=== PATIENT | male | born 1945 | race Caucasian/White ===

== ENCOUNTER 2018-11-23 06:37 | Emergency (ER) | payer BC, MEDICARE, OTHER ==
[2018-11-23 06:59] VITALS: BP 158/95
[2018-11-23] MEDS ORDERED: Sodium Chloride 0.9% 10 ML Syringe FLUSH PRN (07:19)
[2018-11-23] MEDS ORDERED: Ondansetron 4 MG/2 ML SDV IVPUSH ONE (07:22)
[2018-11-23] MEDS ORDERED: HYDROmorphone 0.5 MG/0.5 ML Syringe IVPUSH ONE (07:22)
--- NOTE | 2018-11-23 07:25 | EDM.PDOC ---
ED HPI GENERAL MEDICAL PROBLEM - General Chief Complaint: Abdominal Pain Stated Complaint: ABDOMINAL PAIN Time Seen by Provider: 11/23/18 07:11 Source of Information: Reports: Patient, Family, RN Notes Reviewed History Limitations: Reports: No Limitations - History of Present Illness INITIAL COMMENTS - FREE TEXT/NARRATIVE: 72-year-old gentleman presents emergency department day complaint of epigastric pain, he has a known history of right renal carcinoma status post nephrectomy recently visited his urologist yesterday for yearly evaluation which included blood work and CT scan chest abdomen and pelvis no acute process was noted in blood work or CT scan. He states the pain started last night quite severe rates it 7 out of 10 he describes it as sharp constant he is not found anything to get any relief epigastric pain Pain Score (Numeric/FACES): 7 - Related Data Allergies Allergy/AdvReac Type Severity Reaction Status Date / Time No Known Allergies Allergy Verified 11/23/18 07:00 Home Meds: Home Meds amLODIPine Besylate [Amlodipine Besylate] 10 mg PO DAILY 11/19/15 [History] hydroCHLOROthiazide [Hydrochlorothiazide] 50 mg PO DAILY 11/19/15 [History] Latanoprost 1 drop TOP DAILY 11/23/18 [History] Tamsulosin HCl 1 tab PO DAILY 11/23/18 [History] Past Medical History HEENT History: Reports: Impaired Vision Cardiovascular History: Reports: Hypertension Genitourinary History: Reports: BPH Musculoskeletal History: Reports: Arthritis, Fracture Other Musculoskeletal History: foot broken,thumb smashed,nose broken Neurological History: Reports: Concussion, Migraines Oncologic (Cancer) History: Reports: Basal Cell Carcinoma, Renal (Status post right nephrectomy), Squamous Cell Carcinoma Other Oncologic History: back, head, face - Infectious Disease History Infectious Disease History: Reports: Chicken Pox - Past Surgical History GI Surgical History: Reports: Colonoscopy Social & Family History - Family History Family Medical History: Unobtainable - Tobacco Use Smoking Status *Q: Never Smoker - Living Situation & Occupation Living situation: Reports: , with Spouse Occupation: Retired ED ROS GENERAL - Review of Systems Review Of Systems: See Below Constitutional: Reports: Chills HEENT: Reports: No Symptoms Respiratory: Reports: No Symptoms Cardiovascular: Reports: No Symptoms GI/Abdominal: Reports: Abdominal Pain (Epigastric area), Flatus, Nausea, Vomiting. Denies: Constipation, Diarrhea : Reports: No Symptoms Musculoskeletal: Reports: No Symptoms Skin: Reports: No Symptoms Neurological: Reports: No Symptoms ED EXAM, GI/ABD - Physical Exam Exam: See Below Exam Limited By: No Limitations General Appearance: Alert, Mild Distress Throat/Mouth: No Airway Compromise Neck: Normal Inspection, Supple, Non-Tender, Full Range of Motion Respiratory/Chest: No Respiratory Distress, Lungs Clear, Normal Breath Sounds, No Accessory Muscle Use, Chest Non-Tender Cardiovascular: Regular Rate, Rhythm, No Murmur GI/Abdominal Exam: Normal Bowel Sounds, Soft, No Distention, Tender (Epigastric region) Course - Vital Signs Last Recorded V/S: Last Vital Signs Temp 96.4 F 11/23/18 07:08 Pulse 87 11/23/18 07:08 Resp 16 11/23/18 07:08 BP 158/95 H 11/23/18 07:08 Pulse Ox 96 11/23/18 07:08 - Orders/Labs/Meds Orders: Active Orders 24 hr Category Date Time Status Cardiac Monitoring [RC] .As Directed Care 11/23/18 07:19 Active EKG Documentation Completion [RC] ASDIRECTED Care 11/23/18 07:20 Active Peripheral IV Care [RC] . DIRECTED Care 11/23/18 07:20 Active Abdomen Ltd [US] Stat Exams 11/23/18 08:32 Taken Lactated Ringers [Ringers, Lactated] 1,000 ml Med 11/23/18 07:30 Active IV ASDIRECTED Sodium Chloride 0.9% [Saline Flush] Med 11/23/18 07:19 Active 10 ml FLUSH ASDIRECTED PRN Peripheral IV Insertion Adult [OM.PC] Stat Oth 11/23/18 07:19 Ordered EKG 12 Lead [EK] Stat Ther 11/23/18 07:20 Ordered Medication Orders Lactated Ringer's (Ringers, Lactated) 1,000 mls @ 999 mls/hr IV ASDIRECTED SUNIL Last Admin: 11/23/18 07:41 Dose: 999 mls/hr Sodium Chloride (Saline Flush) 10 ml FLUSH ASDIRECTED PRN PRN Reason: Keep Vein Open Last Admin: 11/23/18 07:36 Dose: 10 ml Labs: Laboratory Tests 11/23/18 11/23/18 11/23/18 Range/Units 07:26 07:26 07:26 WBC 5.7 (4.5-11.0) K/uL RBC 5.59 (4.30-5.90) M/uL Hgb 16.4 H (12.0-15.0) g/dL Hct 47.5 (40.0-54.0) % MCV 85 (80-98) fL MCH 29 (27-31) pg MCHC 35 (32-36) % Plt Count 193 (150-400) K/uL Neut % (Auto) 89 H (36-66) % Lymph % (Auto) 8 L (24-44) % [place] % (Auto) 3 (2-6) % Eos % (Auto) 0 L (2-4) % Baso % (Auto) 0 (0-1) % Sodium 138 L (140-148) mmol/L Potassium 3.8 (3.6-5.2) mmol/L Chloride 100 (100-108) mmol/L Carbon Dioxide 28 (21-32) mmol/L Anion Gap 13.8 (5.0-14.0) mmol/L BUN 20 H (7-18) mg/dL Creatinine 1.4 H (0.8-1.3) mg/dL Est Cr Clr Drug Dosing 46.14 mL/min Estimated GFR (MDRD) 50 L (>60) Glucose 124 H (74-106) mg/dL Lactic Acid 2.1 H (0.4-2.0) mmol/L Calcium 9.4 (8.5-10.1) mg/dL Total Bilirubin 0.5 (0.2-1.0) mg/dL AST 24 (15-37) U/L ALT 32 (12-78) U/L Alkaline Phosphatase 67 (46-116) U/L Troponin I < 0.017 (0.000-0.056) ng/mL Total Protein 7.2 (6.4-8.2) g/dL Albumin 3.6 (3.4-5.0) g/dL Globulin 3.6 H (2.3-3.5) g/dL Albumin/Globulin Ratio 1.0 L (1.2-2.2) Lipase (73-393) U/L 11/23/18 Range/Units 07:26 WBC (4.5-11.0) K/uL RBC (4.30-5.90) M/uL Hgb (12.0-15.0) g/dL Hct (40.0-54.0) % MCV (80-98) fL MCH (27-31) pg MCHC (32-36) % Plt Count (150-400) K/uL Neut % (Auto) (36-66) % Lymph % (Auto) (24-44) % [place] % (Auto) (2-6) % Eos % (Auto) (2-4) % Baso % (Auto) (0-1) % Sodium (140-148) mmol/L Potassium (3.6-5.2) mmol/L Chloride (100-108) mmol/L Carbon Dioxide (21-32) mmol/L Anion Gap (5.0-14.0) mmol/L BUN (7-18) mg/dL Creatinine (0.8-1.3) mg/dL Est Cr Clr Drug Dosing mL/min Estimated GFR (MDRD) (>60) Glucose (74-106) mg/dL Lactic Acid (0.4-2.0) mmol/L Calcium (8.5-10.1) mg/dL Total Bilirubin (0.2-1.0) mg/dL AST (15-37) U/L ALT (12-78) U/L Alkaline Phosphatase (46-116) U/L Troponin I (0.000-0.056) ng/mL Total Protein (6.4-8.2) g/dL Albumin (3.4-5.0) g/dL Globulin (2.3-3.5) g/dL Albumin/Globulin Ratio (1.2-2.2) Lipase 224 (73-393) U/L Meds: Medications Generic Name Dose Route Start Last Admin Trade Name Freq PRN Reason Stop Dose Admin Lactated Ringer's 1,000 mls @ 999 mls/hr 11/23/18 07:30 11/23/18 07:41 Ringers, Lactated IV 999 mls/hr ASDIRECTED SUNIL Administration Sodium Chloride 10 ml 11/23/18 07:19 11/23/18 07:36 Saline Flush FLUSH 10 ml ASDIRECTED PRN Administration Keep Vein Open Discontinued Medications Generic Name Dose Route Start Last Admin Trade Name Freq PRN Reason Stop Dose Admin Al Hydroxide/Mg Hydroxide 15 0 ml 11/23/18 08:12 11/23/18 08:24 ml/ Lidocaine HCl 15 ml PO 11/23/18 08:13 30 ml ONETIME ONE Administration Hydromorphone HCl 0.5 mg 11/23/18 07:22 11/23/18 07:36 Dilaudid IVPUSH 11/23/18 07:23 0.5 mg ONETIME ONE Administration Ondansetron HCl 4 mg 11/23/18 07:22 11/23/18 07:35 Zofran IVPUSH 11/23/18 07:23 4 mg ONETIME ONE Administration Departure - Departure Time of Disposition: 09:33 Disposition: Home, Self-Care 01 Condition: Fair Clinical Impression: Epigastric abdominal pain [place]stone Qualifiers: Cholecystitis presence: without cholecystitis Biliary obstruction: without biliary obstruction Qualified Code(s): K80.20 - Calculus of gallbladder without cholecystitis without obstruction - Discharge Information Referrals: Alberto Padgett MD [Primary Care Provider] - Forms: ED Department Discharge Additional Instructions: Please follow-up with your HIDA scan, prescription written for hydrocodone 5/ 325 one tab by mouth [address] Padgett will be in contact with you with the results - My Orders Last 24 Hours: My Active Orders 11/23/18 07:19 Cardiac Monitoring [RC] .As Directed Sodium Chloride 0.9% [Saline Flush] 10 ml FLUSH ASDIRECTED PRN Peripheral IV Insertion Adult [OM.PC] Stat 11/23/18 07:20 EKG Documentation Completion [RC] ASDIRECTED Peripheral IV Care [RC] . DIRECTED EKG 12 Lead [EK] Stat 11/23/18 07:30 Lactated Ringers [Ringers, Lactated] 1,000 ml IV ASDIRECTED 11/23/18 08:32 Abdomen Ltd [US] Stat - Assessment/Plan Last 24 Hours: My Active Orders 11/23/18 07:19 Cardiac Monitoring [RC] .As Directed Sodium Chloride 0.9% [Saline Flush] 10 ml FLUSH ASDIRECTED PRN Peripheral IV Insertion Adult [OM.PC] Stat 11/23/18 07:20 EKG Documentation Completion [RC] ASDIRECTED Peripheral IV Care [RC] . DIRECTED EKG 12 Lead [EK] Stat 11/23/18 07:30 Lactated Ringers [Ringers, Lactated] 1,000 ml IV ASDIRECTED 11/23/18 08:32 Abdomen Ltd [US] Stat Plan: Assessment Acuity = acute Site and laterality = epigastric pain Etiology = suspicious for gallbladder disease Manifestations = nausea and vomiting Location of injury = Home Lab values = CBC unremarkable, creatinine elevated 1.4 consistent chronic renal failure stage GIII a, troponin was negative, lipase negative, lactic acid within normal limits ultrasound shows moderate amount of gallstones with no gallbladder thickening by report gallbladder is three quarters [address] way full with stones Plan discussed case with his primary care provider Dr. Padgett 09:30 agreed to pursue a gallbladder workup therefore I ordered a HIDA scan prescription written for hydrocodone 5/325 one tab by mouth 3 times a day when necessary total #10, order written for HIDA scan as well This note was dictated using [employer] voice recognition software please call with any questions on syntax or grammar.
[2018-11-23] MEDS ORDERED: Lactated Ringers 1,000 ML IV SCH (07:30)
[2018-11-23] MEDS ORDERED: Alum Hydrox/Mag Hydrox/Simeth 15 ML, Lidocaine 2% 15 ML PO ONE ×2 (08:12)
--- NOTE | 2018-11-23 08:33 | CRLCR ---
INDICATION: Chest pain COMPARISON: none TECHNIQUE: Portable AP erect chest performed at 7:30 a.m. FINDINGS: The lungs are clear. There is no evidence of pneumothorax. The heart, mediastinum and pulmonary vessels are of normal size. There is no evidence of pleural fluid. IMPRESSION: Negative chest. Dictated by Kiran Walker MD @ Nov 23 2018 8:31AM Signed by Dr. Kiran Walker @ Nov 23 2018 8:32AM
[2018-11-23] MEDS ORDERED: HYDROmorphone 1 MG/ML Syringe IM ONE (09:52)
--- NOTE | 2018-11-23 10:01 | CRLUS ---
INDICATION: Epigastric pain. Prior right nephrectomy for carcinoma in 2016. COMPARISON: none TECHNIQUE: 2D price scale imaging and color Doppler analysis was performed of the right upper quadrant. FINDINGS: The patient`s liver is of normal size and has uniform echogenicity. There is no evidence of ascites. There is a normal appearance of the hepatic IVC and proximal abdominal aorta. The pancreatic body appears normal. The pancreatic head and tail were obscured. The gallbladder is of normal size and there are several small mobile stones within the lumen. There is no evidence of edema within the gallbladder wall and the nurse midwife/clinical instructor commented that the patient was not focally tender over the gallbladder during the exam. The gallbladder wall measures 3 mm in thickness. The common bile duct is of normal size and measures 5 mm in diameter at the level of the marguerite hepatis. No suspicious soft tissue masses noted within the right nephrectomy bed. IMPRESSION: Cholelithiasis but without evidence of acute cholecystitis or biliary duct obstruction. Dictated by Kiran Walker MD @ Nov 23 2018 9:53AM Signed by Dr. Kiran Walker @ Nov 23 2018 10:00AM
== END 2018-11-23 10:14 | disposition home or self-care (01) ==
LOC: JP.ED 06:37
DX: K80.20 Calculus of gallbladder without cholecystitis without obstruction (principal); I10 Essential (primary) hypertension; Z79.899 Other long term (current) drug therapy
CPT/HCPCS: 36415; 71045; 76705; 80053; 83605; 83690; 84484; 85025; 93005; 96374; 96375; 99285-25; A9270-GY; J1170; J2405; J7120

== ENCOUNTER 2018-12-24 07:05 | Day surgery (SDC) | payer MEDICARE ==
[~2018-12-24 07:05] MED LIST: Bupivacaine 0.5% 50 ML MDV ONE; Lidocaine 1% with EPINEPHrine 1:100,000 50 ML MDV ONE
[2018-12-24] MEDS ORDERED: Dexamethasone 4 MG/ML SDV ONE (07:18)
[2018-12-24] MEDS ORDERED: fentaNYL 250 MCG/5 ML SDV ONE (07:18)
[2018-12-24] MEDS ORDERED: Rocuronium 50 MG/5 ML Vial ONE (07:18)
[2018-12-24] MEDS ORDERED: Propofol 200 MG/20 ML SDV ONE (07:18)
[2018-12-24] MEDS ORDERED: Neostigmine Methylsulfate 1 MG/ML 5 ML Syringe ONE (07:18)
[2018-12-24] MEDS ORDERED: Glycopyrrolate 0.2 MG/ML 5 ML MDV ONE (07:18)
[2018-12-24] MEDS ORDERED: Ondansetron 4 MG/2 ML SDV ONE (07:18)
[2018-12-24] MEDS ORDERED: Scopolamine 1.5 MG Transdermal Patch TOP SCH (07:42)
[2018-12-24] MEDS ORDERED: Ropivacaine 52 ML, Dexamethasone 8 MG, EPINEPHrine 0.4 MG, Sodium Chloride 0.9% 25.6 ML NERVRT SCH ×4 (08:00)
[2018-12-24] MEDS ORDERED: Sodium Chloride 0.9% 1,000 ML IV SCH (08:00)
[2018-12-24] MEDS: metroNIDAZOLE/Normal Saline 500 MG in Premix Bag 1 BAG IV ONE ×2 (08:05→11:29)
[2018-12-24] MEDS ORDERED: hydrOXYzine HCl 100 MG/2 ML SDV IM PRN (08:26)
[2018-12-24] MEDS ORDERED: Docusate Sodium 100 MG Cap PO PRN (08:26)
[2018-12-24] MEDS ORDERED: fentaNYL 100 MCG/2 ML SDV IVPUSH PRN (08:26)
[2018-12-24] MEDS: ceFAZolin 2 GM in Premix Bag 1 BAG IV ONE ×2 (08:30→11:28)
[2018-12-24] MEDS ORDERED: Phenylephrine 1% 10 MG/ML SDV ONE (08:40)
[2018-12-24] MEDS ORDERED: Lactated Ringers 1,000 ML ONE (09:04)
[2018-12-24] MEDS ORDERED: Lidocaine 1% with EPINEPHrine 1:100,000 50 ML MDV INJECT ONE (09:30)
[2018-12-24] MEDS ORDERED: fentaNYL 100 MCG/2 ML SDV ONE (09:30)
--- NOTE | 2018-12-24 10:05 | OR ---
DATE OF PROCEDURE: 12/24/2018 PROCEDURE: Transversus abdominis plane block, bilaterally. COMPLICATIONS: None. MANAGEMENT SCIENTIST: None. RISKS: Risks, benefits, alternatives, and limitations including, but not limited to infection, bleeding, and injury to abdominal structures were all explained to the patient, who wished to proceed. PROCEDURE IN DETAIL: The patient was placed in supine position. The right transversus plane was addressed first. Using 11 megahertz ultrasound probe, the needle was advanced between the 2nd and 3rd planes and 80% of the solution was injected. Same procedure was performed on the opposite side in the same manner, same fashion, same technique, in the same sequence, except different needle and syringe. The patient tolerated the procedure well. Cristo Martínez MD /[id number]
[2018-12-24] MEDS: Acetaminophen/HYDROcodone 325-10 MG Tab PO PRN ×2 (10:38→18:45)
--- NOTE | 2018-12-24 11:57 | OR ---
DATE OF PROCEDURE: 12/24/2018 PROCEDURES: 1. Laparoscopic cholecystectomy. 2. Liver biopsy. COMPLICATIONS: None. PRINTED CIRCUIT BOARD PCB DESIGNER: None. FINDINGS: 1. A very fragile liver. 2. Adhesions in abdomen due to previous nephrectomy. 3. Cholecystitis with biliary dyskinesia. RISKS: Risks, benefits, alternatives, and limitations including, but not limited to infection, bleeding, and injury to abdominal structures such as bowel, bladder, liver, intestine, and other risks not listed here were explained to the patient who wished to proceed. We also discussed cystic duct injuries, common bile duct leaks, seroma, hematoma and abscess formation, possibility of open surgery, and other risks not listed here. PROCEDURE IN DETAIL: The patient was placed in supine position. A supraumbilical curvilinear incision was made. A Veress needle was then used to enter the abdomen without abnormality and drop test was performed without abnormality. The abdomen was subsequently insufflated. A 10 mm port was introduced under direct visualization. This was followed by a second 10 mm port. Two additional 5 mm ports were entered under direct visualization. During this process, the patient had omental adhesions in the right abdomen precluding any port placement. These were subsequently dissected bluntly. Of note, at the end of the procedure, this was inspected for bleeding or other abnormalities, and none was noted. The gallbladder was retracted cephalad and the infundibulum was retracted inferolaterally. Using blunt dissection, a "clear view" of the gallbladder was obtained with a single pulsatile structure entering the gallbladder and a single nonpulsatile structure entering the gallbladder. These were clipped x3 and subsequently transected. The remaining one-third of the gallbladder was then removed from the gallbladder bed with electrocautery. After the gallbladder was removed and the ducts were obviously transected, the clips were inspected and 2 clips on the duct and the artery were both found to be completely across the tubular structures. The gallbladder was removed from the superior port. This was slightly enlarged due to the size of the gallbladder. A Jason-Cut liver biopsy was then performed next due to the fragility and the somewhat pale appearance of the liver. This was brought without difficulty and electrocautery was used to control any bleeding. The gallbladder bed was then inspected. There was one area of liver bleeding, which was controlled with electrocautery. Once this was addressed, the pressure was dropped to 6 and inspected for 1 minute. No additional bleeding was noted. A single piece of Surgicel was placed over this area to ensure proper hemostasis. The air was removed. The abdomen was irrigated. The entry point and the omental adhesion area were inspected for abnormal bleeding that was noted. The ports were thoroughly irrigated and closed with 3-0 Vicryl and 4-0 Vicryl interrupted running fashion. Dermabond was applied. The patient tolerated the procedure well. Of note, Surgicel has been placed within the abdomen and as it oxidized this will turn brown, which can be sometimes confused with bile products leading to false-positive of bile leaks or biloma. Cristo Martínez MD /[id number]
[2018-12-24] MEDS ORDERED: VERIFY SCOP PATCH TOP SCH (15:00)
[2018-12-24 18:23] VITALS: BP 150/83
[2018-12-24] MEDS ORDERED: Tamsulosin 0.4 MG Cap.ER PO STA (18:27)
== END 2018-12-24 19:18 | disposition home or self-care (01) ==
LOC: JP.SDS 07:05 → JP.2SS 10:30 → JP.SDS 19:18
PROVIDERS: ATTEND Surgery
DX: K80.10 Calculus of gallbladder with chronic cholecystitis without obstruction (principal); K76.0 Fatty (change of) liver, not elsewhere classified; K66.0 Peritoneal adhesions (postprocedural) (postinfection); I10 Essential (primary) hypertension; G89.18 Other acute postprocedural pain; Z87.891 Personal history of nicotine dependence
CPT/HCPCS: 36415; 47379; 47562; 64486; 80053; 85027; 88304; 88307; 88313; A9270; J0171; J0690; J1100; J2370; J2405; J2704; J2710; J2795; J3010; J3410; J3490; J7030; J7050; J7120

== ENCOUNTER 2024-08-29 13:43 | Emergency (ER) | payer MEDICARE ==
[2024-08-29 15:02] VITALS: BP 184/100; PULSE 93
[2024-08-29] MEDS: Lidocaine 1% with EPINEPHrine 1:100,000 20 ML MDV INJECT ONE (15:22)
[2024-08-29] MEDS: Diphtheria,Pertussis(Acell),Tetanus Vaccine 0.5 ML Syringe IM ONE (15:23)
== END 2024-08-29 15:43 | disposition home or self-care (01) ==
LOC: JP.ED 13:43
DX: S61.411A Laceration without foreign body of right hand, initial encounter (principal); I10 Essential (primary) hypertension; Z87.891 Personal history of nicotine dependence; Z79.899 Other long term (current) drug therapy; X50.1XXA Overexertion from prolonged static or awkward postures, initial encounter; Z23 Encounter for immunization
CPT/HCPCS: 12002; 73130-26-RT; 73130-RT; 90471; 90715; 99283; 99283-25